=== PATIENT | female | born 1950 | race Two or more races ===

== ENCOUNTER 2017-11-28 17:02 | Emergency (ER) | payer OTHER ==
[~2017-11-28] VITALS: Ht 167.6 cm; Wt 62.6 kg
[~2017-11-28 17:02] MED LIST: TRIPLEX; [UNRECOGNIZED DRUG - OTHER] TP
[2017-11-28] MEDS ORDERED: SYNTHROID75 MCG (17:16)
== END 2017-11-28 18:37 | disposition home or self-care (01) ==
LOC: ER 17:02
DX: N30.80 Other cystitis without hematuria (principal)

== ENCOUNTER 2019-07-12 16:12 | Inpatient (IN) | payer OTHER ==
[~2019-07-12] VITALS: Ht 165.1 cm; Wt 62.6 kg
[~2019-07-12 16:12] MED LIST changes: +SYNTHROID75 MCG
[2019-07-12] MEDS ORDERED: ZOCOR20 MG (16:46)
[2019-07-21] MEDS ORDERED: FLAGYL500MG PO (13:57)
[2019-07-21] MEDS ORDERED: ZOCOR20 MG PO (13:57)
[2019-07-21] MEDS ORDERED: LEVOTHYROXINE100 MCG PO (13:57)
[2019-07-21] MEDS ORDERED: INTESTINEX680 M1 PO (13:57)
[2019-07-21] MEDS ORDERED: CIPRO500 MG PO (13:57)
== END 2019-07-21 15:20 | DRG 372 ==
LOC: ER 16:12 → MEDJ 07-13 11:29
PROVIDERS: ADMIT Internal Medicine Geriatric Medicine
PROC: BB24Y0Z Computerized Tomography (CT Scan) of Bilateral Lungs using Other Contrast, Unenhanced and Enhanced (ICD-10-PCS; 2019-07-13)
PROC: 02HV33Z Insertion of Infusion Device into Superior Vena Cava, Percutaneous Approach (ICD-10-PCS; 2019-07-13)
PROC: BW21Y0Z Computerized Tomography (CT Scan) of Abdomen and Pelvis using Other Contrast, Unenhanced and Enhanced (ICD-10-PCS; 2019-07-13)
PROC: 3E0436Z Introduction of Nutritional Substance into Central Vein, Percutaneous Approach (ICD-10-PCS; 2019-07-13)
PROC: 0J9C30Z Drainage of Pelvic Region Subcutaneous Tissue and Fascia with Drainage Device, Percutaneous Approach (ICD-10-PCS; principal; 2019-07-14)
PROC: BW21Y0Z Computerized Tomography (CT Scan) of Abdomen and Pelvis using Other Contrast, Unenhanced and Enhanced (ICD-10-PCS; 2019-07-19)
DX: K35.32 Acute appendicitis with perforation, localized peritonitis, and gangrene, without abscess (principal); E44.0 Moderate protein-calorie malnutrition; L02.211 Cutaneous abscess of abdominal wall; N73.0 Acute parametritis and pelvic cellulitis; J98.11 Atelectasis; N13.39 Other hydronephrosis; K57.32 Diverticulitis of large intestine without perforation or abscess without bleeding; R31.0 Gross hematuria; N30.81 Other cystitis with hematuria; B96.29 Other Escherichia coli [E. coli] as the cause of diseases classified elsewhere; B96.5 Pseudomonas (aeruginosa) (mallei) (pseudomallei) as the cause of diseases classified elsewhere; B95.4 Other streptococcus as the cause of diseases classified elsewhere; E78.49 Other hyperlipidemia; R60.0 Localized edema; J44.9 Chronic obstructive pulmonary disease, unspecified; D50.0 Iron deficiency anemia secondary to blood loss (chronic); E89.0 Postprocedural hypothyroidism

== ENCOUNTER 2019-10-19 13:08 | Day surgery (SDC) | payer OTHER ==
[~2019-10-19 13:08] MED LIST changes: +CIPRO500 MG PO; +FLAGYL500MG PO; +INTESTINEX680 M1 PO; +LEVOTHYROXINE100 MCG PO; +ZOCOR20 MG; +ZOCOR20 MG PO
== END 2019-10-19 19:06 | disposition home or self-care (01) ==
LOC: AMB-ENDOS 13:08
DX: K62.89 Other specified diseases of anus and rectum (principal); K57.30 Diverticulosis of large intestine without perforation or abscess without bleeding; K64.8 Other hemorrhoids

== ENCOUNTER 2020-04-24 06:30 | Day surgery (SDC) | payer OTHER ==
[~2020-04-24 06:30] MED LIST changes: +SYNTHROID88 MCG PO; +ZOCOR PO
[2020-04-24] MEDS ORDERED: ZOFRAN4 MG PO (09:52)
[2020-04-24] MEDS ORDERED: PERCOCET 5-3251 EACH PO (09:52)
[2020-04-24] MEDS ORDERED: AMOX1TAB5 PO (09:53)
== END 2020-04-24 14:00 | disposition home or self-care (01) ==
LOC: CIR.AMB 06:30
PROVIDERS: ATTEND Surgery
DX: K35.32 Acute appendicitis with perforation, localized peritonitis, and gangrene, without abscess (principal); Z20.828 Contact with and (suspected) exposure to other viral communicable diseases

== ENCOUNTER → 2020-06-13 12:04 | Outpatient (CLI) | payer OTHER ==
[~2020-06-13 12:04] MED LIST changes: +AMOX1TAB5 PO; +PERCOCET 5-3251 EACH PO; +ZOFRAN4 MG PO
== END | disposition home or self-care (01) ==
LOC: LAB 12:04
PROVIDERS: ATTEND Urology
DX: N30.00 Acute cystitis without hematuria (principal)

== ENCOUNTER 2020-09-11 14:40 | Emergency (ER) | payer OTHER ==
[~2020-09-11] VITALS: Ht 165.1 cm; Wt 62.6 kg
== END 2020-09-11 19:39 | disposition home or self-care (01) ==
LOC: ER 14:40
DX: R10.32 Left lower quadrant pain (principal); R10.12 Left upper quadrant pain